=== PATIENT | female | born 1995 | race Caucasian/White ===

== ENCOUNTER 2019-06-19 09:13 | Emergency (ER) | payer BC, SELFPAY ==
--- NOTE | 2019-06-19 09:18 | ED.GENADULT ---
HPI - General Adult General Chief complaint: Upper Respiratory Infection Stated complaint: FEVER/COUGH/SNEEZING Time Seen by Provider: 06/19/19 09:49 Source: patient Mode of arrival: ambulatory Limitations: no limitations History of Present Illness HPI narrative: 24-year-old female patient presents to the [facility] with complaints of cold symptoms for the past 3 days. Patient states she has had fevers as high as 100, runny nose, stuffy nose, sneezing. Patient states she did have a sore throat for the first 2 days but that has since resolved. Patient denies any chest pain or shortness of breath. Denies any abdominal pain, nausea, vomiting or diarrhea. Patient states she has been taking [id number] Tylenol and NyQuil for her symptoms. Patient denies getting a flu shot this year. Patient denies any or breast-feeding at this time. Related Data Home Medications Medication Instructions Recorded Confirmed acetaminophen [Tylenol] 325 mg PO ONCE PRN 06/19/19 06/19/19 [id number] cap PO 06/19/19 [Vicks DayQuil Cold-Flu Relief] Allergies Allergy/AdvReac Type Severity Reaction Status Date / Time No Known Allergies Allergy Verified 06/19/19 09:45 Review of Systems Review of Systems: Narrative: CONSTITUTIONAL: Positive fever, denies chills, or sweats. EYES: Denies visual changes, redness, or discharge. ENT: Positive rhinorrhea, congestion, sore throat, denies otalgia. CARDIOVASCULAR: Denies chest pain, palpitations, or edema. RESPIRATORY: Positive cough, denies dyspnea. GASTROINTESTINAL: Denies abdominal pain, nausea, vomiting, or diarrhea. GENITOURINARY: Denies dysuria or hematuria. SKIN: Denies rash or itching. MUSCULOSKELETAL: Denies back pain, joint pain, or myalgia. NEUROLOGIC: Denies headache, numbness, or weakness. PSYCHIATRIC: Denies anxiety or depression. PMFSH Comments At the time of my signature I agree with nursing past medical history, surgical, social, and family history. There is no relevant family history pertinent to the presenting complaint. Exam Narrative: Exam Narrative: GENERAL: Well-appearing, well-nourished, and in no acute distress. HEAD: Normocephalic, atraumatic. No tenderness noted to frontal or maxillary sinuses on palpation EYES: PERRLA and EOMI. ENT: Nares with erythema and edema noted bilaterally with the right nare swollen shut, no rhinorrhea or epistaxis. Mucous membranes moist. Posterior pharynx with no erythema, tonsillectomy, exudates or lesions present. Bilateral TMs are clear no erythema or foreign bodies in the canal. NECK: Supple. No lymphadenopathy CHEST: Clear to auscultation. No respiratory distress. HEART: Regular rate and rhythm. No murmur heard. Normal peripheral pulses. ABDOMEN: Soft, nontender, nondistended, normal active bowel sounds. EXTREMITIES: Normal range of motion. No edema. SKIN: Warm, dry, no rash. NEURO: No focal deficits. Alert and oriented x3. Course Reevaluation(s) Reevaluation #1: Notify patient that she is positive today for influenza B. Discussed with her that because her symptoms have been going on for about 3 days now she is outside the window to receive antivirals. Discussed with patient she can continue taking symptomatic relief including Motrin, Tylenol, DayQuil and NyQuil for her symptoms. Discussed with patient that she should get plenty of rest and increase her fluids. Discussed patient she has chest pain or shortness of breath she needs to go the ER right away. Discussed with her I will write her off of school and work for today and tomorrow but she must be fever free for 24 hours before returning to [place] [id number]. Patient verbalized understanding denies any other questions or concerns at this time. Date: 06/19/19 Time: 10:04 Vital Signs Vital signs: Vital Signs Temperature 36.9 C 06/19/19 09:38 Pulse Rate 81 06/19/19 09:38 Respiratory Rate 18 06/19/19 09:38 Blood Pressure 125/77 06/19/19 09:38 P
[2019-06-19 09:38] VITALS: BP 125/77; PULSE 81; RESP 18; TEMP 36.9; O2SAT 100
== END 2019-06-19 10:07 | disposition home or self-care (01) ==
PROVIDERS: Emergency Provider Nurse Practitioner Family
DX: J10.1 Influenza due to other identified influenza virus with other respiratory manifestations (principal)
CPT/HCPCS: 87804; 99202; G0463